=== PATIENT | male | born 1985 | race Hispanic/Latino ===

== ENCOUNTER 2018-04-14 09:41 | Emergency (ER) | payer OTHER ==
[2018-04-14 09:43] VITALS: BMI 25.1
[2018-04-14 09:45] VITALS: BP 136/71; PULSE 100; RESP 18; TEMP 98.1; O2SAT 98
--- NOTE | 2018-04-14 10:25 | ED PDOC ---
HPI: Psych/Substance Abuse Time Seen by Provider: 04/14/18 09:48 Chief Complaint (Nursing): Anxiety Chief Complaint (Provider): Anxiety History Per: Patient History/Exam Limitations: no limitations Additional Complaint(s): Pt reports anxiety X 1 month, getting worse, intensified last night after seeing mother's hospital bill. Pt has h/o anxiety. Denies suicidal/homicidal ideation. Past Medical History Reviewed: Nursing Documentation, Vital Signs Vital Signs: Last Vital Signs Temp 98.1 F 04/14/18 09:43 Pulse 100 H 04/14/18 09:43 Resp 18 04/14/18 09:43 BP 136/71 04/14/18 09:43 Pulse Ox 98 04/14/18 09:43 - Medical History PMH: Anxiety - Family History Family History: States: Unknown Family Hx - Living Arrangements Living Arrangements: Alone - Social History Current smoker - smoking cessation education provided: No Alcohol: None Drugs: Cannabis - Home Medications Home Medications: Ambulatory Orders Medication Instructions Recorded Lorazepam [Ativan] 0.5 mg PO DAILY PRN #5 tab 04/14/18 - Allergies Allergies/Adverse Reactions: Allergies Allergy/AdvReac Type Severity Reaction Status Date / Time No Known Allergies Allergy Verified 04/14/18 10:22 Review of Systems Cardiovascular: Negative for: Chest Pain Respiratory: Negative for: Shortness of Breath Psych: Positive for: Anxiety Physical Exam - Reviewed Nursing Documentation Reviewed: Yes Vital Signs Reviewed: Yes - Physical Exam Appears: Positive for: Well, No Acute Distress Skin: Positive for: Normal Color, Warm, Dry Eye Exam: Positive for: Normal appearance, EOMI, PERRL Cardiovascular/Chest: Positive for: Regular Rate, Rhythm Respiratory: Positive for: Normal Breath Sounds Neurologic/Psych: Positive for: Alert, barrel rifler broach II-XII, Oriented, Mood/Affect (Anxious) - ECG O2 Sat by Pulse Oximetry: 98 Medical Decision Making Medical Decision Makin yo male with anxiety. - Crisis evaluation Disposition - Clinical Impression Clinical Impression: Anxiety - Disposition Disposition: Routine/Home Disposition Time: 11:03 Condition: STABLE Prescriptions: Lorazepam [Ativan] 0.5 mg PO DAILY PRN #5 tab PRN Reason: Anxiety Instructions: Anxiety, Adult (DC) Forms: [employer] ([place]ien)
== END 2018-04-14 11:22 | disposition home or self-care (01) ==
LOC: H.ER 09:41
DX: F41.9 Anxiety disorder, unspecified (principal)